=== PATIENT | male | born 1945 | race Hispanic/Latino ===

== ENCOUNTER 2018-03-31 15:54 | Outpatient (CLI) | payer MEDICARE ==
[2018-03-31 16:42] LABS: #Eosinphils 1.1 thou/uL (0.0-0.7); #Lymphocytes 1.3 thou/uL (1.20-3.40); #Monocytes 0.5 thou/uL (0.11-0.59); #Neutrophils 4.5 thou/uL (1.40-6.50); %Basophils 0.5 % (0.0-1.0); %Eosinophils 14.2 % (0.0-10.0); %Lymphocytes 17.6 % (21.0-51.0); %Monocytes 7.1 % (0.0-10.0); %Neutrophils 60.6 % (42.0-75.0); Hemoglobin 14.4 g/dL (14.0-18.0); Mean Corpuscular HGB CONC 35.8 g/dL (32.0-36.0); Mean Corpuscular Hemoglobin 32.1 pg (27.0-31.0); Mean Corpuscular Volume 89.7 fl (80.0-94.0); Mean Platelet Volume 8.7 fL (7.4-10.4); Platelet Count 173 thou/uL (130-400); Red Blood Cell (RBC) Count 4.49 mill/uL (4.70-6.10); White Blood Cell (WBC) Count 7.3 thou/uL (4.8-10.8)
== END 2018-03-31 15:55 | disposition home or self-care (01) ==
LOC: LABBT 15:54
PROVIDERS: ATTEND Orthopaedic Surgery Hand Surgery
DX: Z01.812 Encounter for preprocedural laboratory examination (principal); M72.0 Palmar fascial fibromatosis [Dupuytren]
CPT/HCPCS: 85025; 85652

== ENCOUNTER 2018-04-07 05:51 | Day surgery (SDC) | payer MEDICARE ==
[2018-03-31 16:03] VITALS: BMI 29.0
[2018-04-07] MEDS ORDERED: Betamet Acet/Betamet Na Ph 30 MG/5 ML VIAL ONE (06:52)
[2018-04-07] MEDS ORDERED: Bupivacaine HCl 0.5%/Epinephrine 1:200,000/PF 30 ml Vial ONE (06:52)
[2018-04-07] MEDS ORDERED: Bacitracin Zinc Ointment 30 gm TUBE ONE ×2 (06:52→10:17)
[2018-04-07] MEDS ORDERED: Bupivacaine PF 0.5% 30 ML VIAL ONE (06:52)
[2018-04-07] MEDS ORDERED: CEFAZOLIN/Water 2 GM/20 ML SYRINGE ONE (06:55)
[2018-04-07] MEDS ORDERED: Midazolam HCl 2 mg/2 ml Vial ONE (07:27)
[2018-04-07] MEDS ORDERED: Fentanyl 100 MCG/2 ML VIAL ONE ×2 (07:27)
[2018-04-07] MEDS ORDERED: Ketorolac Tromethamine 30 MG/ML VIAL ONE (10:56)
--- NOTE | 2018-04-07 11:12 | OP ---
DATE OF PROCEDURE: 04/07/2018 PREOPERATIVE DIAGNOSES: 1. Right carpal tunnel syndrome. 2. Right Dupuytren's cord to both the ring finger and the long finger out to the proximal phalangeal joint large and long. 3. Two digital nerve compression all 3 sites as listed above. 4. Mass, ulnar side of the distal forearm. POSTOPERATIVE DIAGNOSES: 1. 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 2. 15 cm long x 8 cm thick Dupuytren's cord with fingers to both the PIP joints level of the flexor tendons to the ring finger and small and long finger with digital nerve involvement. 3. Tight transverse carpal ligament with minimal flattening of the median nerve. PROCEDURE PERFORMED: 1. Dupuytrens subtotal palmar fasciectomy. 2. Radial and ulnar digital nerve neuroplasty long finger. 3. Radial digital nerve neuroplasty ring finger, right. 4. Carpal tunnel release. 5. Excisional biopsy, lipoma, distal ulnar forearm, right. SURGEON: Toro Rivera M.D. ANESTHESIA: General LMA technique augmented by 30 mL 0.5% Marcaine block by [place] Anesthesia. INDICATIONS: Mass and problems listed above diagnosed clinically and failed conservative treatment. DESCRIPTION OF PROCEDURE: After successful general LMA technique, the limb was prepped and draped. Timeout was done appropriately. The patient then had the limb exsanguinated, tourniquet inflated to 250 mmHg pressure. Then gave a total of 30 mL of Marcaine 0.5% divided equally between the 3 incisio ns. We then made a zigzag incision approaching the two digits, the radial one-half of the proximal p halanx of the ring finger and the entire proximal half of the long finger into the palm just distal t o the transverse carpal ligament. We carried this through skin and subcutaneous tissue. Then, we id entified proximally as possible neurovascular bundle and began a digital neuroplasty out 2.5 mm dista l to both limbs of this very thick cord. Once this was done, we the cord from the skin at all levels, and filed its insertion on the flexor tendon sheath just proximal to the proximal phalang eal joint on the ring finger and the long finger just distal to the proximal phalangeal joint. Then, with the nerve protected we had dissected it back proximally, released from the transcarpal lig ament lifted it from the patient and sent as a specimen. The digital nerves were intact. Celestone was given 2 mL in this area. We then released the transverse mid incision beginning 6 mm proximal to this up to the level of the w rist flexion crease in line with the ring finger and carried it through skin, subcutaneous tissue to identify the transcarpal ligament. We then used a self-retaining retractor to release the transcarpa l ligament from its mid portion distally using a combination of [place] blade and tenotomy scissors an d direct visualization. The same [place] blade, tenotomy, direct visualization combination was used t o release it from the mid portion proximally. From here, we placed the arm in slight elbow flexion, identified the mass and carried the incision th rough skin and subcutaneous tissue the distal aspect of the ulnar forearm. Here we find a lipoma. W e used electrocautery to separate the venous plexus around it, protected all destruction and lifted t he lipoma from the patient. Tourniquet was released at 80 minutes. Hemostasis obtained. All of the wounds listed above were alexandre sed with interrupted 4-0 nylon in an interrupted mattress pattern. Bulky dressing was applied and th e patient left the operating room without evidence of anesthetic or operative complication.
[2018-04-07] MEDS ORDERED: Lidocaine 1% PF 5 ML VIAL ONE (13:33)
[2018-04-07] MEDS ORDERED: PROPOFOL 200 MG/20 ML VIAL ONE (13:33)
== END 2018-04-07 12:19 | disposition home or self-care (01) ==
LOC: SDC 05:51
PROVIDERS: ATTEND Orthopaedic Surgery Hand Surgery
PROC: 0JNJ0ZZ Release Right Hand Subcutaneous Tissue and Fascia, Open Approach (ICD-10-PCS; principal; 2018-04-07)
PROC: 01N40ZZ Release Ulnar Nerve, Open Approach (ICD-10-PCS; 2018-04-07)
PROC: 01N60ZZ Release Radial Nerve, Open Approach (ICD-10-PCS; 2018-04-07)
PROC: 01N50ZZ Release Median Nerve, Open Approach (ICD-10-PCS; 2018-04-07)
PROC: 0JBG0ZZ Excision of Right Lower Arm Subcutaneous Tissue and Fascia, Open Approach (ICD-10-PCS; 2018-04-07)
DX: M72.0 Palmar fascial fibromatosis [Dupuytren] (principal); G56.03 Carpal tunnel syndrome, bilateral upper limbs; D17.21 Benign lipomatous neoplasm of skin and subcutaneous tissue of right arm; G56.21 Lesion of ulnar nerve, right upper limb; E11.9 Type 2 diabetes mellitus without complications; E78.5 Hyperlipidemia, unspecified; Z79.82 Long term (current) use of aspirin; Z79.899 Other long term (current) drug therapy
CPT/HCPCS: 88304; J0670; J0702; J1885; J2001; J2250; J2704; J3010; S0020

== ENCOUNTER 2019-08-02 09:53 | Outpatient (CLI) | payer MEDICARE ==
--- NOTE | 2019-08-02 13:22 | MRI ---
MRI Pelvis W WO Con History: R 97.20 elevated PSA Comparison: None. Findings: Multiplanar multisequence MRI pelvis performed prior to and after the intravenous ministrat ion of contrast. The exam was reviewed on an 3-D independent workstation. The prostate measures 5.1 x 3.8 x 3.8 cm for a volume of 36.1 mL. Peripheral zone: Normal. Transitional zone: Extending from the base to the mid gland from 12:00-1:00 abutting the fibromuscula r stroma is a 2 x 1.7 x 1.5 cm mass which is markedly T2 hypointense with diffusion restriction. Neurovascular bundles: Intact Seminal vesicles: Intact Bones: Heterogeneous although on the large field of view T1 weighted imaging sequence there are is no evidence of marrow signal replacement to suggest osseous metastatic disease. Intrapelvic soft tissues: Unremarkable Lymph nodes: Unremarkable. No evidence for metastasis. Subtle asymmetric left obturator lymph node me asures 5 mm short axis. Impression: 1. PI-RADS 5: High (clinically significant prostate cancer is highly likely to be present). This occu rs in the transitional zone 12:00-1:00 from the base to the mid gland extending into the anterior fiber muscular stroma. 2. Intact prostatic capsule and neurovascular bundles. 3. No evidence for osseous or local regional lymphatic metastatic disease. 4. Heterogeneous bone marrow signal is likely reflective of red marrow hyperplasia and less likely me tastasis. Nuclear medicine bone scan recommended.
== END 2019-08-02 09:54 | disposition home or self-care (01) ==
LOC: TBSIIMAG 09:53
PROVIDERS: ATTEND Urology
DX: R97.20 Elevated prostate specific antigen [PSA] (principal)
CPT/HCPCS: 72197; 82565

== ENCOUNTER 2019-10-16 07:05 | Outpatient (CLI) | payer OTHER, MEDICARE ==
[2019-10-16 15:04] LABS: Hemoglobin 12.8 g/dL (14.0-18.0); Mean Corpuscular HGB CONC 35.3 g/dL (32.0-36.0); Mean Corpuscular Hemoglobin 31.9 pg (27.0-31.0); Mean Corpuscular Volume 90.6 fL (78.0-98.0); Mean Platelet Volume 9.2 fL (7.4-10.4); Platelet Count 177 thou/uL (130-400); RBC Distribution Width 11.5 % (11.5-14.5); Red Blood Cell (RBC) Count 4.02 mill/uL (4.70-6.10); White Blood Cell (WBC) Count 9.4 thou/uL (4.8-10.8)
[2019-10-16 15:09] LABS: INR-International Normal Ratio 0.9; PTT 30.1 SEC (22.9-36.1); Prothrombin Time 12.5 SEC (12.0-14.7)
[2019-10-16 15:15] LABS: Bacteria/HPF None Seen HPF (None Seen); Bilirubin Negative (Negative); Blood, Urine Negative (Negative); Clarity Clear (Clear); Glucose, Urine (Dipstick) 100 mg/dL (Negative); Leukocyte Negative Leu/uL (Negative); Nitrite Negative (Negative); Protein, Urine (Dipstick) 30 mg/dL (Neg-Trace); RBC/HPF 0-3 HPF (0-3); Squamous Epithelial 0-3 HPF (0-3); Urobilinogen Normal mg/dL (Less than 2); WBC/HPF 0-3 HPF (0-3)
[2019-10-16 15:24] LABS: Anion Gap 12 mmol/L (10-20); BUN (Urea Nitrogen) 24 mg/dL (8.4-25.7); Calc. Creatinine Clearance 0 mL/min (70-130); Calcium 9.4 mg/dL (7.8-10.44); Carbon Dioxide 23 mmol/L (23-31); Chloride 107 mmol/L (98-107); Estimated GFR-MDRD 61; Glucose 221 mg/dL (83-110); Potassium 4.7 mmol/L (3.5-5.1); Sodium 137 mmol/L (136-145)
--- NOTE | 2019-10-18 21:25 | EKG ---
Test Reason : Blood Pressure : / mmHG Vent. Rate : 073 BPM Atrial Rate : 073 BPM P-R Int : 154 ms QRS Dur : 096 ms QT Int : 394 ms P-R-T Axes : 029 110 019 degrees QTc Int : 434 ms Normal sinus rhythm Incomplete right bundle branch block Possible Right ventricular hypertrophy Abnormal ECG When compared with ECG of 27-DEC-2016 12:31, Incomplete right bundle branch block is now Present Confirmed by Loretta BROWN ([id number]) on 10/18/2019 9:24:56 PM Referred By: KATRIN Confirmed By:Loretta BROWN
== END 2019-10-16 07:06 | disposition home or self-care (01) ==
LOC: LABBT 07:05
PROVIDERS: ATTEND Urology
DX: Z01.818 Encounter for other preprocedural examination (principal); R97.20 Elevated prostate specific antigen [PSA]; E11.9 Type 2 diabetes mellitus without complications; N40.0 Benign prostatic hyperplasia without lower urinary tract symptoms; N47.1 Phimosis; R35.0 Frequency of micturition
CPT/HCPCS: 80048; 81001; 85027; 85610; 85730; 87086; 93005; 93010

== ENCOUNTER 2019-10-24 05:47 | Day surgery (SDC) | payer OTHER, MEDICARE ==
[2019-10-16 14:14] VITALS: BMI 31.9
[2019-10-24] MEDS ORDERED: Levofloxacin 500 mg/D5W 100 ml Premix Bag ONE (06:03)
[2019-10-24] MEDS ORDERED: Sodium Chloride 0.9% 100 ML ONE (06:03)
[2019-10-24] MEDS ORDERED: cefTRIAXone\\ROCEPHIN 2 GM VIAL ONE (06:03)
[2019-10-24] MEDS ORDERED: Propofol 1,000 MG/100 ML VIAL IV ONE (06:49)
[2019-10-24] MEDS ORDERED: Midazolam HCl 2 mg/2 ml Vial ONE (06:49)
[2019-10-24] MEDS ORDERED: Fentanyl 100 MCG/2 ML VIAL ONE (06:49)
[2019-10-24] MEDS ORDERED: Lidocaine 2% PF 5 ML VIAL ONE (07:12)
--- NOTE | 2019-10-24 09:21 | OP ---
DATE OF PROCEDURE: 10/24/2019 PREOPERATIVE DIAGNOSES: 1. A 74-year-old male with unremarkable AVELINO, PSA of 4.3 to 3.7. 2. Abnormal MRI demonstrating PI-RADS-5 lesion. POSTOPERATIVE DIAGNOSES: 1. A 74-year-old male with unremarkable AVELINO, PSA of 4.3 to 3.7. 2. Abnormal MRI demonstrating PI-RADS-5 lesion. PROCEDURES PERFORMED: Transrectal ultrasound 12-core needle prostate biopsy, MRI fusion biopsy. ANESTHESIA: TIVA. COMPLICATIONS: None apparent. DISPOSITION: To recovery room in stable condition. SPECIMEN: A 12-core standard needle core prostate biopsy, four cores obtained from region of interest. FINDINGS: Prostate volume 38 g. INDICATIONS FOR PROCEDURE AND HISTORY: Mr. Braswell is a 74-year-old male, who presented to my office for evaluation of elevated PSA with unremarkable AVELINO. His initial presenting PSA of 4.4 to 4.3 with unremarkable AVELINO. We did obtain an MRI, given his age and comorbidities. We discussed options of MRI. If MRI reassuring, options of observation versus proceeding with biopsy. MRI was obtained demonstrating a PI-RADS-5 lesion. Therefore, the patient and family desired to proceed with prostate biopsy, MRI fusion biopsy. Risks and complications of the procedure including bleeding, pain, infection, urosepsis, chronic pain, injury to adjacent organs, was reviewed with him in detail and all questions answered to their satisfaction. They desired to proceed. DESCRIPTION OF PROCEDURE: After an informed consent was signed, the patient was taken to the operating room, placed in a supine position. TIVA anesthesia was administered and the patient was placed in a lateral decubitus position with pressure points padded and protected. A standard transrectal ultrasound probe was placed and we measured the prostate volume: Urethral length of 4.1, width of 5.1, height of 3.4, volume estimated to be 38 g. We then subsequently transitioned him to perform an MRI fusion biopsy. We calibrated him and aligned his prostate with an ultrasound imaging. The region of interest was easily found, four cores from the region of interest was obtained. Then, we subsequently performed a 12-core prostate biopsy in a standard pattern. He did have some oozing from the rectum, I did observe him, which demonstrated it did slow down with observation. A digital rectal exam was repeated and there was no significant clots per se. He was hemodynamically stable. He was transitioned to the recovery room in stable condition. We will observe him postprocedure for significant bleed. If stable, we will discharge. I have recommend ciprofloxacin 500 mg one p.o. b.i.d. for 5 days. Appointment with me next Tuesday to review pathology. Job ID: [id number] [id number]
[2019-10-24] MEDS ORDERED: Phenazopyridine HCl 97.5 MG TABLET ONE (10:01)
== END 2019-10-24 09:20 | disposition home or self-care (01) ==
LOC: SDC 05:47
PROVIDERS: ATTEND Urology
PROC: 0VB03ZX Excision of Prostate, Percutaneous Approach, Diagnostic (ICD-10-PCS; principal; 2019-10-24)
DX: N40.1 Benign prostatic hyperplasia with lower urinary tract symptoms (principal); R35.0 Frequency of micturition; N47.1 Phimosis; E78.5 Hyperlipidemia, unspecified; E11.9 Type 2 diabetes mellitus without complications; Z79.82 Long term (current) use of aspirin; Z79.84 Long term (current) use of oral hypoglycemic drugs; Z79.899 Other long term (current) drug therapy
CPT/HCPCS: 88305; J0696; J1956; J2001; J2250; J2704; J3010; J3490